=== PATIENT | female | born 1945 | race Caucasian/White ===

== ENCOUNTER 2020-05-10 09:25 | Outpatient (REF) | payer MEDICARE, SELFPAY ==
[2020-05-10 11:17] LABS: MANUAL DIFF FLAG NO
[2020-05-10 11:24] LABS: Basophils Percent Auto 0.7 % (0-2); Eosinophils Absolute Auto 0.3 X10*3/uL (0.0-0.4); Eosinophils Percent Auto 4.7 % (0-4); Hematocrit 39.3 % (37-47); Hemoglobin 13.8 g/dl (12.0-16.0); Imm Gran Abs Auto 0.01 X10*3/uL (0.00-0.03); Imm Gran Pct Auto 0.2 % (0.0-0.4); Lymphocytes Percent Auto 17.5 % (20-40); Mean Corpuscular HGB Conc 35.1 g/dl (31.0-35.0); Mean Corpuscular Hemoglobin 35.5 pg (27.0-33.0); Monocytes Absolute Auto 0.6 X10*3/uL (0.1-1.2); Monocytes Percent Auto 10.9 % (2-11); Neutrophils Absolute Auto 3.7 X10*3/uL (2.0-8.3); Platelet Count 211 X10*3/uL (160-400); Red Blood Count 3.89 X10*6/uL (4.20-5.50); Red Cell Distribution Width 12.7 % (11.0-16.0); White Blood Count 5.6 X10*3/uL (4.8-10.8)
[2020-05-10 11:42] LABS: Alanine Aminotransferase 18 U/L (0-31); Albumin Level 4.3 g/dL (3.5-5.0); Alkaline Phosphatase 87 U/L (39-117); Anion Gap 13 (12-20); Aspartate Amino Transferase 27 U/L (5-31); Bilirubin Total 0.5 mg/dL (0.0-1.0); Blood Urea Nitrogen 21 mg/dL (9-16); Calcium 9.2 mg/dL (8.4-10.2); Carbon Dioxide 28 mmol/L (22-29); Chloride 105 mmol/L (96-108); Cholesterol 191 mg/dL; Estimated Glomerular Filt Rate > 60; Glucose Random 81 mg/dL (60-115); HDL Cholesterol 75 mg/dL; LDL Cholesterol Calculated 103 mg/dl; Potassium 4.3 mmol/l (3.3-5.1); Sodium 142 mmol/L (135-145); Total Protein 7.2 g/dL (6.5-8.0); Triglycerides 68 mg/dL
[2020-05-10 12:40] LABS: Folate 12.7 ng/mL (> or = 4.0); Vitamin B12 367 pg/mL (200-900)
== END 2020-05-10 09:26 | disposition home or self-care (01) ==
LOC: HO.HMGCLDS 09:25
PROVIDERS: PCP Internal Medicine; Visit Provider Internal Medicine
DX: E03.9 Hypothyroidism, unspecified (principal); I10 Essential (primary) hypertension; E78.00 Pure hypercholesterolemia, unspecified; R79.89 Other specified abnormal findings of blood chemistry
CPT/HCPCS: 36415; 80053; 80061; 82607; 82746; 84443; 85025

== ENCOUNTER 2020-06-23 | Outpatient (REF) | payer MEDICARE, SELFPAY | END 2020-06-23 00:01 | disposition home or self-care (01) | LOC: HO.VC | PROVIDERS: Visit Provider Internal Medicine | DX: Z23 Encounter for immunization (principal) | CPT/HCPCS: 0011A ==

== ENCOUNTER 2020-07-20 | Outpatient (REF) | payer MEDICARE, SELFPAY | END 2020-07-20 00:01 | disposition home or self-care (01) | LOC: HO.VC | PROVIDERS: Visit Provider Internal Medicine | DX: Z23 Encounter for immunization (principal) | CPT/HCPCS: 0012A ==

== ENCOUNTER → 2020-12-15 15:11 | Outpatient (BNVA) | payer MEDICARE, SELFPAY | PROVIDERS: PCP Internal Medicine; Visit Provider Internal Medicine | DX: J43.9 Emphysema, unspecified (principal); F41.9 Anxiety disorder, unspecified | CPT/HCPCS: 99212 ==

== ENCOUNTER 2021-01-04 14:15 | Outpatient (REF) | payer MEDICARE, SELFPAY ==
[2021-01-04 17:25] LABS: Anion Gap 12 (12-20); Blood Urea Nitrogen 25 mg/dL (9-16); Calcium 9.2 mg/dL (8.4-10.2); Carbon Dioxide 28 mmol/L (22-29); Chloride 106 mmol/L (96-108); Estimated Glomerular Filt Rate > 60; Potassium 4.1 mmol/L (3.3-5.1); Sodium 142 mmol/L (135-145)
[2021-01-10 05:11] LABS: Renin 8.52 ng/mL/h (0.25-5.82)
== END 2021-01-04 14:16 | disposition home or self-care (01) ==
LOC: HO.HMGCLDS 14:15
PROVIDERS: PCP Internal Medicine; Visit Provider Internal Medicine Hypertension Specialist
DX: I10 Essential (primary) hypertension (principal)
CPT/HCPCS: 36415; 80051; 82088; 82310; 82565; 84244; 84520

== ENCOUNTER 2021-03-17 11:58 | Outpatient (REF) | payer MEDICARE, SELFPAY ==
[2021-03-17 13:03] LABS: Influenza A PCR NEGATIVE (Negative); Influenza B PCR NEGATIVE (Negative); Resp Syncy Virus RNA Qual PCR NEGATIVE (Negative); SARS COV2 PCR INHOUSE NEGATIVE (Negative)
== END 2021-03-17 11:59 | disposition home or self-care (01) ==
LOC: HO.LAB 11:58
PROVIDERS: PCP Internal Medicine; Visit Provider Internal Medicine
DX: Z20.822 Contact with and (suspected) exposure to COVID-19 (principal)
CPT/HCPCS: 0241U; 36415

== ENCOUNTER 2021-07-27 09:05 | Outpatient (REF) | payer MEDICARE, SELFPAY ==
[2021-07-27 11:29] LABS: MANUAL DIFF FLAG NO
[2021-07-27 11:39] LABS: Basophils Percent Auto 0.7 % (0-2); Eosinophils Absolute Auto 0.2 X10*3/uL (0.0-0.4); Eosinophils Percent Auto 5.1 % (0-4); Hematocrit 39.3 % (37.0-47.0); Hemoglobin 13.3 g/dl (12.0-16.0); Lymphocytes Absolute Auto 0.8 X10*3/uL (1.2-4.9); Mean Corpuscular HGB Conc 33.8 g/dl (31.0-35.0); Mean Corpuscular Volume 97.5 fL (80.0-98.0); Mean Platelet Volume 10.5 fL (9.4-12.3); Monocytes Absolute Auto 0.4 X10*3/uL (0.1-1.2); Monocytes Percent Auto 10.1 % (2-11); Neutrophils Absolute Auto 2.7 x10*3/uL (2.0-8.3); Neutrophils Percent Auto 65.1 % (45-73); Platelet Count 227 X10*3/uL (160-400); Red Blood Count 4.03 X10*6/uL (4.20-5.50); Red Cell Distribution Width 12.9 % (11.0-16.0); White Blood Count 4.2 X10*3/uL (4.8-10.8)
[2021-07-27 12:12] LABS: Alanine Aminotransferase 20 U/L (0-31); Albumin Level 4.5 g/dL (3.5-5.0); Alkaline Phosphatase 92 U/L (39-117); Anion Gap 12 (12-20); Aspartate Amino Transferase 25 U/L (5-31); Bilirubin Total 0.5 mg/dL (0.0-1.0); Blood Urea Nitrogen 21 mg/dL (9-16); Calcium 9.7 mg/dL (8.4-10.2); Carbon Dioxide 29 mmol/L (22-29); Chloride 103 mmol/L (96-108); Cholesterol 206 mg/dL; Estimated Glomerular Filt Rate > 60; Glucose Random 97 mg/dL (60-115); HDL Cholesterol 76 mg/dL; LDL Cholesterol Calculated 118 mg/dl; Sodium 140 mmol/L (135-145); Total Protein 7.4 g/dL (6.5-8.0); Triglycerides 60 mg/dL
[2021-07-27 12:18] LABS: Free T4 (Free Thyroxine) 1.18 ng/dL (0.71-1.85); Vitamin D 25-OH Total 40.2 ng/mL (>30)
[2021-07-27 12:34] LABS: Folate 12.8 ng/mL (> or = 4.0); Vitamin B12 370 pg/mL (200-900)
== END 2021-07-27 09:06 | disposition home or self-care (01) ==
LOC: HO.HMGCLDS 09:05
PROVIDERS: PCP Internal Medicine; Visit Provider Internal Medicine
DX: E78.00 Pure hypercholesterolemia, unspecified (principal); E03.9 Hypothyroidism, unspecified; K21.9 Gastro-esophageal reflux disease without esophagitis
CPT/HCPCS: 36415; 80053; 80061; 82306; 82607; 82746; 84439; 84443; 85025

== ENCOUNTER 2021-08-09 14:21 | Outpatient (REF) | payer MEDICARE, SELFPAY ==
[2021-08-09 17:07] LABS: Anion Gap 13 (12-20); Blood Urea Nitrogen 21 mg/dL (9-16); Calcium 9.8 mg/dL (8.4-10.2); Carbon Dioxide 28 mmol/L (22-29); Chloride 103 mmol/L (96-108); Estimated Glomerular Filt Rate > 60; Glucose Random 95 mg/dL (60-115); Potassium 4.2 mmol/L (3.3-5.1); Sodium 140 mmol/L (135-145)
== END 2021-08-09 14:22 | disposition home or self-care (01) ==
LOC: HO.HMGCLDS 14:21
PROVIDERS: Visit Provider Internal Medicine Hypertension Specialist
DX: I10 Essential (primary) hypertension (principal)
CPT/HCPCS: 36415; 80048

== ENCOUNTER 2021-12-08 10:25 | Outpatient (REF) | payer MEDICARE, SELFPAY ==
--- NOTE | ~2021-12-08 | US_ITS ---
EXAMINATION: US ABDOMEN COMPLETE CLINICAL INFORMATION: Other specified abnormal findings of blood chemistry. COMPARISON: None TECHNIQUE: Real-time imaging of the abdominal viscera. FINDINGS: PANCREAS: Within normal limits. ABDOMINAL AORTA: The proximal, mid, and distal segments are normal in caliber. INFERIOR VENA CAVA: Visualized portions are normal. LIVER: Nonspecific focal hyperechoic observation in the left lobe of the liver. The liver is otherwise normal in size, shape and attenuation. No biliary ductal dilatation. GALLBLADDER: Cholelithiasis and sludge. No evidence of gallbladder wall thickening or pericholecystic free fluid. Negative Hernandez's sign. COMMON BILE DUCT: Normal in caliber measuring 0.1 cm in diameter. RIGHT KIDNEY: Multiple echogenic foci with no associated shadowing or twinkle artifact. No hydronephrosis or focal parenchymal lesions. The kidney measures 9.6 cm in maximum dimension. LEFT KIDNEY: Multiple echogenic foci with no associated shadowing or twinkle artifact. There is an additional 0.3 cm echogenic focus with twinkle artifact, related with a stone. No hydronephrosis or focal parenchymal lesions. The kidney measures 9.4 cm in maximum dimension. SPLEEN: Normal. The spleen measures 6.4 cm in maximum dimension. FREE FLUID: None. US/US abdomen complete IMPRESSION: Nonspecific hyperechoic focal observation in the left hepatic lobe, possibly associated with differential fat infiltration. However, definite characterization is recommended with an elective MRI of the abdomen with and without intravenous contrast. Cholelithiasis but no sonographic evidence of acute cholecystitis. Bilateral echogenic renal foci with no associated shadowing nor twinkle artifact, possibly associated with vascular calcifications. There is a 0.3 cm nonobstructive calculus in the left kidney.
== END 2021-12-08 10:26 | disposition home or self-care (01) ==
LOC: HO.HMGCX 10:25
PROVIDERS: Visit Provider Internal Medicine
DX: K21.9 Gastro-esophageal reflux disease without esophagitis (principal); R79.89 Other specified abnormal findings of blood chemistry
CPT/HCPCS: 76700

== ENCOUNTER → 2022-01-10 15:32 | Outpatient (BNVA) | payer MEDICARE, SELFPAY | PROVIDERS: PCP Internal Medicine; Visit Provider Internal Medicine | DX: J43.9 Emphysema, unspecified (principal); J30.9 Allergic rhinitis, unspecified; Z79.899 Other long term (current) drug therapy | CPT/HCPCS: 99212 ==

== ENCOUNTER 2022-02-17 08:26 | Day surgery (SDC) | payer MEDICARE, SELFPAY ==
[2022-01-18 14:39] VITALS: BMI 16.7
--- NOTE | 2022-02-16 09:23 | P.CONAN_ITS ---
Documented by User: Mitra Song NP 02/16/22 09:24 HPI - Anesthesia Eval Consult details Narrative: 76yo F for Upper Endoscopy PMFSH Active Problems Active Problems: All Active Problems (Updated 01/18/22 @ 14:34 by Hilaria Cardona RN) Generalized anxiety disorder (Acute) Impacted cerumen of both ears (Acute) Allergic rhinitis (Acute) Osteopenia (Acute) Weight loss (Acute) Arrhythmia (Acute) Left renal stone (Acute) Cholelithiasis (Acute) Cheilitis (Acute) Liver lesion (Acute) COPD (chronic obstructive pulmonary disease) (Acute) GERD (gastroesophageal reflux disease) (Acute) Hypercholesterolemia (Acute) Hypothyroid (Acute) Hypertension (Acute) Past Medical History Medical History (Updated 01/18/22 @ 14:34 by Hilaria Cardona RN) COPD (chronic obstructive pulmonary disease) GERD (gastroesophageal reflux disease) Hypercholesterolemia Hypertension Hypothyroid Tubular adenoma of colon Family History Family History Father Coronary artery disease Mother Pancreatic cancer Surgical History Surgical History (Updated 01/18/22 @ 14:34 by Hilaria Cardona RN) H/O colonoscopy History of breast biopsy History of nasal surgery History of tonsillectomy and adenoidectomy Hx of cataract extraction Social History Social History Housing: House Alcohol intake: current Alcohol intake frequency: does not drink Patient Tobacco Use Status: Former Tobacco user Tobacco use type: Cigarette e-Cigarette/Vaping Use: Never Used Second Hand Smoke Exposure: No Are you DNR?: No Advance Directives: No Advance Directives Information Provided: Yes Current occupational status: retired Cognitive needs: No Hearing needs: No Vision needs: Yes Meds Allergies Allergy/AdvReac Type Severity Reaction Status Date / Time amlodipine Allergy Intermediate Leg Verified 01/10/22 15:54 swelling hydrochlorothiazide Allergy Intermediate Hypokalemia Verified 01/10/22 15:54 lisinopril Allergy Intermediate Cough Verified 01/10/22 15:54 Home Medications Medication Instructions Recorded Confirmed Last Taken Type Ca 600 mg-D3 20 mcg-mag oxide 50 1 tab PO DAILY 03/03/20 01/18/22 02/16/22 History mx-Ku-tmcfon-manganese-boron tablet (Calcium 600-D3 Plus (mag-zinc)) aspirin 81 mg tablet,delayed 81 mg PO DAILY 03/03/20 01/18/22 02/16/22 History release (Adult Aspirin Regimen) cholecalciferol (vitamin D3) 25 25 mcg PO DAILY 03/03/20 01/18/22 02/16/22 History mcg (1,000 unit) capsule fexofenadine 180 mg tablet 180 mg PO DAILY 02/01/21 01/18/22 02/16/22 History Exam Exam Date and Time: February 16, 2022922 Height,Weight and Vital Signs: Height 5 ft Weight 39.009 kg Pertinent Lab Results Pertinent Lab Results: Laboratory Tests 07/27/21 08/09/21 09:15 14:28 WBC 4.2 L Hgb 13.3 Hct 39.3 Plt Count 227 Sodium 140 Potassium 4.2 Chloride 103 Carbon Dioxide 28 BUN 21 H Creatinine 0.70 Assessment and Plan Assessment Anesthesia Assessment: Chart Reviewed Documented by User: Keysha Aggarwal MD 02/17/22 10:16 [facility] Past Medical History Medical History (Updated 01/18/22 @ 14:34 by Hilaria Cardona RN) COPD (chronic obstructive pulmonary disease) GERD (gastroesophageal reflux disease) Hypercholesterolemia Hypertension Hypothyroid Tubular adenoma of colon Family History Family History Father Coronary artery disease Mother Pancreatic cancer Family history of problems with anesthesia: No Surgical History Surgical History (Updated 01/18/22 @ 14:34 by Hilaria Cardona RN) H/O colonoscopy History of breast biopsy History of nasal surgery History of tonsillectomy and adenoidectomy Hx of cataract extraction History of Problems with Anesthesia: No Social History Social History Housing: House Alcohol intake: current Alcohol intake frequency: does not drink Patient Tobacco Use Status: Former Tobacco user Tobacco use type: Cigarette e-Cigarette/Vaping Use: Never Used Second Hand Smoke Exposure: No Are you DNR?: No Advance Directives: No Advance Directives Information Provided: Yes Current occupational status: retired Cognitive needs: No Hearing needs: No Vision needs: Yes Meds Allergies Allergy/AdvReac Type Severity Reaction Status Date / Time amlodipine Allergy Intermediate Leg Verified 01/10/22 15:54 swelling hydrochlorothiazide Allergy Intermediate Hypokalemia Verified 01/10/22 15:54 lisinopril Allergy Intermediate Cough Verified 01/10/22 15:54 Home Medications Medication Instructions Recorded Confirmed Last Taken Type Ca 600 mg-D3 20 mcg-mag oxide 50 1 tab PO DAILY 03/03/20 01/18/22 02/16/22 History te-Ok-xjvynj-manganese-boron tablet (Calcium 600-D3 Plus (mag-zinc)) aspirin 81 mg tablet,delayed 81 mg PO DAILY 03/03/20 01/18/22 02/16/22 History release (Adult Aspirin Regimen) cholecalciferol (vitamin D3) 25 25 mcg PO DAILY 03/03/20 01/18/22 02/16/22 History mcg (1,000 unit) capsule fexofenadine 180 mg tablet 180 mg PO DAILY 02/01/21 01/18/22 02/16/22 History Exam Height,Weight and Vital Signs: Height 5 ft Weight 39.009 kg Vital Signs Temp Pulse Resp BP Pulse Ox O2 Del Method 02/17/22 08:32 98 F 118 H 18 140/78 H 99 Room Air Airway Mallampati Class: II TM Dist: >3cm Neck ROM: Full Loose/Missing/Broken Teeth: No (Crowns intact) Heart: RRR Lungs: CTAB Assessment and Plan Assessment Anesthesia Assessment: Anesthesia Plan Discussed Final Anesthetic Review Family History of Problems with Anesthesia: No History of Problems with Anesthesia: No NPO: Yes ASA Class: III Final Preanesthetic Review: No Changes in Pt Med Stat, Meds/Allgs Chart Reviewed, Consent Obtained/Reviewed and Anes Risks/Benef Reviewed Patient Risk: Intermediate Procedure Risk: Low Assessment/Block/Sedation in SS: Assess/Block/Sedation-SS Anesthetic Plan Anesthetic Plan: MAC: Disposition: Standard PACU
--- NOTE | 2022-02-17 | ECG_ITS ---
Test Reason : NEW ONSET AFIB Blood Pressure : / mmHG Vent. Rate : 060 BPM Atrial Rate : 241 BPM P-R Int : 000 ms QRS Dur : 128 ms QT Int : 438 ms P-R-T Axes : 000 -68 002 degrees QTc Int : 438 ms Atrial flutter with variable A-V block Right bundle branch block Left anterior fascicular block Bifascicular block Possible Lateral infarct , age undetermined Abnormal ECG When compared with ECG of 15-SEP-2014 16:56, Atrial flutter has replaced Sinus rhythm Borderline criteria for Lateral infarct are now Present Referred By: Keysha Aggarwal Electronically Signed By:MICAELA SMITH
[2022-02-17 08:32] VITALS: BP 140/78; PULSE 118; RESP 18; TEMP 36.6; O2SAT 99
[2022-02-17] MEDS: Lactated Ringers 1,000 ML 100 ML IVCONT (08:54)
--- NOTE | 2022-02-17 09:44 | MHC.SHP ---
Pre-Procedural Eval Section A Date of Service: 02/17/22 Section B Chief Complaint: reflux,wt loss Details of Present Illness: see h and p no changes Relevant Family History (Specify if Yes): No Relevant Social History: None Present Medications: see Short Stay Collaborative assessment Medical History: No relevant PMH History of Previous Operations: No relevant previous surgery Allergies: Allergies Allergy/AdvReac Type Severity Reaction Status Date / Time amlodipine Allergy Intermediate Leg Verified 01/10/22 15:54 swelling hydrochlorothiazide Allergy Intermediate Hypokalemia Verified 01/10/22 15:54 lisinopril Allergy Intermediate Cough Verified 01/10/22 15:54 Review of Systems Sugical H&P ROS: Negative: Constitution, Cardiovascular, Respiratory, Neurological, Psychiatric, Hem-Onc, Allergic/Immunologic, Gastrointestinal, Genitourinary, Musculoskeletal, Integumentary, Endocrine and Eyes/Ears/Nose/Throat Exam Surgical H&P Exam: Normal: HEENT, Normal: Heart, Normal: Lungs, Normal: Extremities, Normal: Abdomen, Normal: Skin and Normal: Neurological Plan Diagnosis/Plan: Unchanged I have reviewed the history and physical and performed a pertinent physical examination on my patient. No changes have occurred unless specified.
[2022-02-17 10:09] VITALS: BP 80/38; PULSE 58; RESP 16; TEMP 36.9; O2SAT 98
--- NOTE | 2022-02-17 10:09 | P.BOP_ITS ---
Brief Operative Note Date of Service: 02/17/22 Pre-op diagnosis: gerd, wt loss Post-op diagnosis: same Surgeon: Tono Gloria Anesthesia: MAC Was an Vulcanized Fiber Unit Operator used for this Procedure?: No Estimated blood loss (mL): 2 Pathology: other Condition: stable Disposition: PACU
[2022-02-17 10:14] VITALS: BP 90/56; PULSE 55; RESP 16; O2SAT 98
[2022-02-17 10:19] VITALS: BP 108/55; PULSE 61; RESP 16; O2SAT 98
[2022-02-17 10:24] VITALS: BP 115/60; PULSE 62; RESP 16; O2SAT 98
[2022-02-17 10:38] VITALS: BP 126/81; PULSE 61; RESP 16; TEMP 37; O2SAT 98
--- NOTE | 2022-02-22 21:34 | OP_ITS ---
SURGEON: Tono Gloria MD INDICATIONS: Gastroesophageal reflux disease and weight loss. PREOPERATIVE DIAGNOSIS: POSTOPERATIVE DIAGNOSIS: PROCEDURE PERFORMED: Upper endoscopy with biopsy on 02/22/22.. ESTIMATED BLOOD LOSS: COMPLICATIONS: ANESTHESIA: ASSISTANTS: SPECIMENS: MEDICATIONS: Monitored anesthesia care. DESCRIPTION OF PROCEDURE: History and physical was performed. The risks and benefits of the procedure were explained to the patient. Informed consent was obtained. The patient was placed in the left lateral decubitus position. The Olympus videogastroscope was introduced into the esophagus, stomach, and duodenum. Examination was performed. The scope was removed. She tolerated the procedure well and was taken to Recovery in stable condition. FINDINGS: Esophagus: The esophagus was normal. There was no esophagitis. Biopsies were obtained from the EG junction. Stomach: Stomach showed no evidence of masses or ulcers. There was a small sliding hiatal hernia. There was mild erythema in the antrum consistent with gastritis. Biopsies were obtained from the antrum. Duodenum: The bulb and second portion were normal. Biopsies were obtained from the second portion of the duodenum. IMPRESSION: 1. Gastroesophageal reflux disease. 2. Gastritis. RECOMMENDATIONS: Follow up with the biopsy results. MD TYLER Bedoya/BEATRIS / [id number] MTDD
== END 2022-02-17 11:00 | disposition home or self-care (01) ==
PROVIDERS: PCP Internal Medicine; Visit Provider Internal Medicine Gastroenterology
PROC: 0DJ08ZZ Inspection of Upper Intestinal Tract, Via Natural or Artificial Opening Endoscopic (ICD-10-PCS; CPT 43235; principal; 2022-02-17 09:30)
DX: K21.9 Gastro-esophageal reflux disease without esophagitis (principal); R63.4 Abnormal weight loss; K29.50 Unspecified chronic gastritis without bleeding; K44.9 Diaphragmatic hernia without obstruction or gangrene; I10 Essential (primary) hypertension; J44.9 Chronic obstructive pulmonary disease, unspecified; E03.9 Hypothyroidism, unspecified; E78.00 Pure hypercholesterolemia, unspecified; Z79.82 Long term (current) use of aspirin; Z79.899 Other long term (current) drug therapy; Z88.8 Allergy status to other drugs, medicaments and biological substances; Z87.891 Personal history of nicotine dependence
CPT/HCPCS: 43239; 88305; 88342; 93005; J2370

== ENCOUNTER 2022-02-17 11:06 | Emergency (ER) | payer MEDICARE, SELFPAY ==
--- NOTE | ~2022-02-17 | CT_ITS ---
EXAMINATION: CT ANGIOGRAM OF THE CHEST WITH AND WITHOUT CONTRAST (CT PULMONARY ANGIOGRAM FOR PE) CLINICAL INFORMATION: Reason for Exam New AFib, elevated D-dimer COMPARISON: None TECHNIQUE: Prior to contrast administration, noncontrast localization images were obtained. Subsequently, multidetector volumetric imaging was performed from the thoracic inlet to below the diaphragms following the administration of 65 mL Omnipaque 350 intravenous contrast. No contrast reaction reported Sagittal, coronal, and MIP oblique sagittal reformatted images were obtained on the CT workstation, uploaded to PACS, and reviewed. This CT examination was performed using dose optimization techniques as appropriate, variously including the following: *Automated exposure control *Adjustment of mA and/or kV according to patient size (this includes techniques or standardized protocols for targeted exams where dose is matched to indication/reason for exam; i.e. extremities or head) *Use of iterative reconstruction technique Total exam dose-length product 141 mGy-cm FINDINGS: QUALITY OF STUDY/CONTRAST BOLUS: Satisfactory. PULMONARY ARTERIES: No central or segmental pulmonary emboli. THORACIC AORTA: No aneurysm or dissection. LUNG: Biapical scarring is present. Mild atelectasis in the bilateral lower lobes. No additional consolidation. PLEURA: No pleural effusion or pneumothorax. MEDIASTINUM: Thyroid gland is not well visualized. There are subcentimeter mediastinal lymph nodes within the range of normal variation. Cardiac size is within normal limits; no pericardial effusion. CHEST WALL/AXILLA: No axillary or internal mammary lymphadenopathy. OSSEOUS STRUCTURES: No acute or suspicious osseous abnormality. UPPER ABDOMEN: Unremarkable. No reflux of contrast into the hepatic veins to suggest elevated right heart pressures. CT/CT angio chest PE protocol IMPRESSION: No pulmonary embolus identified. VTE: negative
[2022-02-17 11:11] VITALS: BP 151/57; PULSE 72; RESP 20; TEMP 37.1; O2SAT 97; BMI 17.9
--- NOTE | 2022-02-17 11:17 | ECG_ITS ---
Test Reason : arrythmia Blood Pressure : / mmHG Vent. Rate : 093 BPM Atrial Rate : 250 BPM P-R Int : 000 ms QRS Dur : 132 ms QT Int : 408 ms P-R-T Axes : 087 -65 037 degrees QTc Int : 507 ms Atrial flutter with variable A-V block Right bundle branch block Left anterior fascicular block Bifascicular block Abnormal ECG When compared with ECG of 17-FEB-2022 10:07, Heart rate has increased Referred By: Emily Champagne Electronically Signed By:MICAELA SMITH
--- NOTE | 2022-02-17 11:24 | ED.ARRPALP ---
HPI - Arrhythmia/Palpitations General Chief Complaint: Arrhythmia/Palpitations Stated Complaint: a flutter Time Seen by Provider: 02/17/22 11:16 Source: patient Mode of arrival: other Limitations: no limitations History of Present Illness HPI narrative: Patient presents to the emergency department from PACU. Patient was having an upper endoscopy with biopsy under Dr. Gloria, Patient's report was secondary to persistent belching. Report received from PACU staff that patient was initially tachycardic with sinus tachycardia on the monitor, during the procedure she was noted to go into atrial fibrillation/atrial flutter, EKG obtained in PACU revealed atrial flutter With variable heart rate, patient received Phenylephrine 100 mcg as she had a systolic blood pressure of 80 during procedure, 150/60 postoperatively. When asked, patient denies any known past history of atrial fibrillation or atrial flutter. Denies any headache, dizziness, lightheadedness, presyncope, syncope, neck pain, shortness of breath, difficulty breathing, chest pain, nausea, vomiting, abdominal pain, numbness or tingling of the extremities, recent swelling to her extremities, recent prolonged Immobilization, hormone usage. Related Data Home Medications Medication Instructions Recorded Confirmed Ca 600 mg-D3 20 mcg-mag oxide 50 1 tab PO DAILY 03/03/20 01/18/22 as-At-fbglwa-manganese-boron tablet (Calcium 600-D3 Plus (mag-zinc)) aspirin 81 mg tablet,delayed 81 mg PO DAILY 03/03/20 01/18/22 release (Adult Aspirin Regimen) cholecalciferol (vitamin D3) 25 25 mcg PO DAILY 03/03/20 01/18/22 mcg (1,000 unit) capsule fexofenadine 180 mg tablet 180 mg PO DAILY 02/01/21 01/18/22 Previous Rx's Medication Instructions Recorded amlodipine 5 mg-valsartan 160 mg 1 tab PO DAILY #30 tabs 01/17/21 tablet albuterol sulfate 90 mcg/actuation 2 puff inhalation Q4-6H PRN 05/05/21 aerosol inhaler (ProAir HFA) shortness of breath or wheezing #1 ea simethicone 125 mg capsule (Gas 125 mg PO BID PRN for abdominal 05/05/21 Relief Extra Strength) pain #90 caps simvastatin 5 mg tablet 5 mg PO QPM #90 tabs 02/23/22 timolol maleate 0.5 % eye drops 1 drp ophthalmic (eye) DAILY #5 mL 08/01/21 Pulmicort Flexhaler 90 1 inh inhalation BID #1 ea 08/10/21 mcg/actuation breath activated (budesonide) levothyroxine 50 mcg tablet 50 mcg PO DAILY 90 days #90 tabs 10/27/21 hydralazine 50 mg tablet 50 mg PO BID #180 tabs 12/22/21 clotrimazole 1 % topical cream 1 appl topical BID #30 grams 12/26/21 sucralfate 1 gram tablet (Carafate) 1 g PO BID #180 tabs 12/27/21 apixaban 2.5 mg tablet (Eliquis) 2.5 mg PO BID atrial fibrilation 02/17/22 #30 tabs famotidine 20 mg tablet (Pepcid) 20 mg PO DAILY #30 tabs 02/17/22 Allergies Allergy/AdvReac Type Severity Reaction Status Date / Time amlodipine Allergy Intermediate Leg Verified 01/10/22 15:54 swelling hydrochlorothiazide Allergy Intermediate Hypokalemia Verified 01/10/22 15:54 lisinopril Allergy Intermediate Cough Verified 01/10/22 15:54 [facility] Past Medical History Medical History (Updated 02/17/22 @ 13:35 by Emily Champagne CNP) COPD (chronic obstructive pulmonary disease) GERD (gastroesophageal reflux disease) Hypercholesterolemia Hypertension Hypothyroid Tubular adenoma of colon Surgical History (Updated 01/18/22 @ 14:34 by Hilaria Cardona RN) H/O colonoscopy History of breast biopsy History of nasal surgery History of tonsillectomy and adenoidectomy Hx of cataract extraction Family History Family History Father Coronary artery disease Mother Pancreatic cancer Social History Social History Housing: House Alcohol intake: current Alcohol intake frequency: does not drink Patient Tobacco Use Status: Former Tobacco user Tobacco use type: Cigarette e-Cigarette/Vaping Use: Never Used Second Hand Smoke Exposure: No Advance Directives: No Advance Directives Information Provided: Yes Current occupational status: retired Cognitive needs: No Hearing needs: No Vision needs: Yes Physical Exam Vital Signs: Vital Signs: Last Vital Signs Temp 98.0 F 02/17/22 13:09 Pulse 64 02/17/22 13:09 Resp 16 02/17/22 13:09 BP 139/68 02/17/22 13:09 Pulse Ox 99 02/17/22 13:09 O2 Del Method 02/17/22 13:09 BMI result Body Mass Index 17.9 Course Course Course Narrative: Patient is a 76-year-old female with a past medical history of anxiety, osteopenia nephrolithiasis, cholelithiasis, COPD, GERD, hypercholesterolemia, hypertension, hypothyroidism. Presents emergency department today from PACU for evaluation of arrhythmia. Upon review of operative records reveals a preoperative heart rate of 118, upon evaluation of the initial rhythm strip obtained does appear as though patient was in atrial fibrillation at that time. Rhythm strips obtained during procedure appear consistent with atrial fibrillation as well as atrial flutter. Most likely patient has had underlying atrial fibrillation prior to the procedure that has provoked atrial flutter that prompted her transfer to the emergency department. Will obtain CBC to evaluate for leukocytosis/ anemia, CMP to evaluate for abnormal electrolytes /abnormal renal function/ abnormal hepaticfunction, EKG and troponin to evaluate for ischemia/ACS, TSH, and Urinalysis. Reevaluation(s) Reevaluation #1: EKG reveals a new atrial flutter with variable A-V block, and a bifascicular block which was seen on prior EKG in 2015. Spoke with Assistant Designer Dr. Gloria, Advised the patient will need to be on anticoagulants, he advised that since patient had mucosal biopsy during procedure that she would be a candidate to start anticoagulants as of today if required. Given her weight, less than 60 kg patient to be started on Eliquis 2.5 mg twice daily, and will require outpatient follow-up with Cardiology. Discussed with patient worrisome signs and symptoms that she should come to the emergency department for including but not limited to falls, head injury, As well as bleeding risk precautions with anticoagulants. Will additionally cover her with PPI for gastric Mucosal protective factor. D-dimer is elevated at [address] angio of the chest to exclude pulmonary embolism. Labs are overall unremarkable otherwise. Initial troponin slightly elevated at 24.9, delta troponin is negative; 29.5. TSH is normal. No anemia. Time: 13:56 Reevaluation #2: Chest CT reveals no evidence of pulmonary embolism. Again reviewed all findings with patient. Patient stable for discharge home. Time: 16:06 MDM - Arrhythmia/Palpitations Medical Records Attestation: I reviewed the patient's medical records. Lab Data Attestation: I reviewed the patient's lab results. Result diagrams: 02/17/22 11:39 02/17/22 11:39 Labs: Lab Results 02/17/22 02/17/22 02/17/22 Range/Units 11:39 11:39 11:39 WBC 7.3 (4.8-10.8) X10*3/uL RBC 4.56 (4.20-5.50) X10*6/uL Hgb 14.0 (12.0-16.0) g/dl Hct 42.6 (37.0-47.0) % MCV 93.4 (80.0-98.0) fL MCH 30.7 (27.0-33.0) pg MCHC 32.9 (31.0-35.0) g/dl RDW 12.7 (11.0-16.0) % Plt Count 224 (160-400) X10*3/uL MPV 9.9 (9.4-12.3) fL Immature Gran % (Auto) 0.1 (0.0-0.4) % Neut % (Auto) 82.6 H (45-73) % Lymph % (Auto) 7.9 L (20-40) % [place] % (Auto) 8.6 (2-11) % Eos % (Auto) 0.4 (0-4) % Baso % (Auto) 0.4 (0-2) % Lymph # (Auto) 0.6 L (1.2-4.9) X10*3/uL [place] # (Auto) 0.6 (0.1-1.2) X10*3/uL Eos # (Auto) 0.0 (0.0-0.4) X10*3/uL Baso # (Auto) 0.0 (0.0-0.2) X10*3/uL Abs Immat Gran (auto) 0.01 (0.00-0.03) X10*3/uL Absolute Neuts (auto) 6.0 (2.0-8.3) x10*3/uL Absolute Nucleated RBC 0.000 (0.0-0.012) X10*3/uL Nucleated RBC % (auto) 0.0 (0.0-0.2) /100WBC D-Dimer High Sensitivty NG/ML Sodium 140 (135-145) mmol/L Potassium 3.9 (3.3-5.1) mmol/L Chloride 105 (96-108) mmol/L Carbon Dioxide 22 (22-29) mmol/L Anion Gap 17 (12-20) BUN 17 H (9-16) mg/dL Creatinine 0.61 (0.5-1.4) mg/dL Estim Creat Clear Calc 50.1 Estimated GFR > 60 Random Glucose 99 (60-115) mg/dL Calcium 9.1 D (8.4-10.2) mg/dL Magnesium 1.8 (1.6-2.6) mg/dL Total Bilirubin 0.6 (0.0-1.0) mg/dL AST 25 (5-31) U/L ALT 29 (0-31) U/L Alkaline Phosphatase 123 H D (39-117) U/L Troponin I High Sens 24.9 H (<3.5-17.0) ng/L B-Natriuretic Peptide (<100) pg/mL Total Protein 6.7 (6.5-8.0) g/dL Albumin 4.1 (3.5-5.0) g/dL TSH 1.17 (0.32-4.0) uIU/mL Urine Color Urine Appearance Urine pH (5.0-9.0) Ur Specific [place] (1.005-1.025) Urine Protein (Neg-Trace) mg/dL Urine Glucose (UA) (Negative) mg/dL Urine Ketones (Negative) mg/dL Urine Blood (Negative) Urine Nitrite (Negative) Ur Leukocyte Esterase (Negative) Urine RBC (0-2) /HPF Urine WBC (0-5) /HPF Ur Squamous Epith Cells (0-2) /HPF Urine Bacteria (None Seen) Hyaline Casts (0-2) /LPF COVID-19 (ZOEY) (Negative) COVID-19 Clin Com 02/17/22 02/17/22 02/17/22 Range/Units 11:39 11:40 13:30 WBC (4.8-10.8) X10*3/uL RBC (4.20-5.50) X10*6/uL Hgb (12.0-16.0) g/dl Hct (37.0-47.0) % MCV (80.0-98.0) fL MCH (27.0-33.0) pg MCHC (31.0-35.0) g/dl RDW (11.0-16.0) % Plt Count (160-400) X10*3/uL MPV (9.4-12.3) fL Immature Gran % (Auto) (0.0-0.4) % Neut % (Auto) (45-73) % Lymph % (Auto) (20-40) % [place] % (Auto) (2-11) % Eos % (Auto) (0-4) % Baso % (Auto) (0-2) % Lymph # (Auto) (1.2-4.9) X10*3/uL [place] # (Auto) (0.1-1.2) X10*3/uL Eos # (Auto) (0.0-0.4) X10*3/uL Baso # (Auto) (0.0-0.2) X10*3/uL Abs Immat Gran (auto) (0.00-0.03) X10*3/uL Absolute Neuts (auto) (2.0-8.3) x10*3/uL Absolute Nucleated RBC (0.0-0.012) X10*3/uL Nucleated RBC % (auto) (0.0-0.2) /100WBC D-Dimer High Sensitivty 532 NG/ML Sodium (135-145) mmol/L Potassium (3.3-5.1) mmol/L Chloride (96-108) mmol/L Carbon Dioxide (22-29) mmol/L Anion Gap (12-20) BUN (9-16) mg/dL Creatinine (0.5-1.4) mg/dL Estim Creat Clear Calc Estimated GFR Random Glucose (60-115) mg/dL Calcium (8.4-10.2) mg/dL Magnesium (1.6-2.6) mg/dL Total Bilirubin (0.0-1.0) mg/dL AST (5-31) U/L ALT (0-31) U/L Alkaline Phosphatase (39-117) U/L Troponin I High Sens (<3.5-17.0) ng/L B-Natriuretic Peptide 393 H (<100) pg/mL Total Protein (6.5-8.0) g/dL Albumin (3.5-5.0) g/dL TSH (0.32-4.0) uIU/mL Urine Color Urine Appearance Urine pH (5.0-9.0) Ur Specific [place] (1.005-1.025) Urine Protein (Neg-Trace) mg/dL Urine Glucose (UA) (Negative) mg/dL Urine Ketones (Negative) mg/dL Urine Blood (Negative) Urine Nitrite (Negative) Ur Leukocyte Esterase (Negative) Urine RBC (0-2) /HPF Urine WBC (0-5) /HPF Ur Squamous Epith Cells (0-2) /HPF Urine Bacteria (None Seen) Hyaline Casts (0-2) /LPF COVID-19 (ZOEY) Negative (Negative) COVID-19 Clin Com See Note 02/17/22 02/17/22 Range/Units 13:30 13:48 WBC (4.8-10.8) X10*3/uL RBC (4.20-5.50) X10*6/uL Hgb (12.0-16.0) g/dl Hct (37.0-47.0) % MCV (80.0-98.0) fL MCH (27.0-33.0) pg MCHC (31.0-35.0) g/dl RDW (11.0-16.0) % Plt Count (160-400) X10*3/uL MPV (9.4-12.3) fL Immature Gran % (Auto) (0.0-0.4) % Neut % (Auto) (45-73) % Lymph % (Auto) (20-40) % [place] % (Auto) (2-11) % Eos % (Auto) (0-4) % Baso % (Auto) (0-2) % Lymph # (Auto) (1.2-4.9) X10*3/uL [place] # (Auto) (0.1-1.2) X10*3/uL Eos # (Auto) (0.0-0.4) X10*3/uL Baso # (Auto) (0.0-0.2) X10*3/uL Abs Immat Gran (auto) (0.00-0.03) X10*3/uL Absolute Neuts (auto) (2.0-8.3) x10*3/uL Absolute Nucleated RBC (0.0-0.012) X10*3/uL Nucleated RBC % (auto) (0.0-0.2) /100WBC D-Dimer High Sensitivty NG/ML Sodium (135-145) mmol/L Potassium (3.3-5.1) mmol/L Chloride (96-108) mmol/L Carbon Dioxide (22-29) mmol/L Anion Gap (12-20) BUN (9-16) mg/dL Creatinine (0.5-1.4) mg/dL Estim Creat Clear Calc Estimated GFR Random Glucose (60-115) mg/dL Calcium (8.4-10.2) mg/dL Magnesium (1.6-2.6) mg/dL Total Bilirubin (0.0-1.0) mg/dL AST (5-31) U/L ALT (0-31) U/L Alkaline Phosphatase (39-117) U/L Troponin I High Sens 29.5 H (<3.5-17.0) ng/L B-Natriuretic Peptide (<100) pg/mL Total Protein (6.5-8.0) g/dL Albumin (3.5-5.0) g/dL TSH (0.32-4.0) uIU/mL Urine Color Yellow Urine Appearance Clear Urine pH 8.0 (5.0-9.0) Ur Specific [place] 1.010 (1.005-1.025) Urine Protein Negative (Neg-Trace) mg/dL Urine Glucose (UA) Negative (Negative) mg/dL Urine Ketones 15 (Negative) mg/dL Urine Blood Negative (Negative) Urine Nitrite Negative (Negative) Ur Leukocyte Esterase Small (1+) H (Negative) Urine RBC 0-2 (0-2) /HPF Urine WBC 6-10 H (0-5) /HPF Ur Squamous Epith Cells 0-2 (0-2) /HPF Urine Bacteria None Seen (None Seen) Hyaline Casts 0-2 (0-2) /LPF COVID-19 (ZOEY) (Negative) COVID-19 Clin Com Imaging Data CT scan - chest: Radiologist's impression: CT/CT angio chest PE protocol IMPRESSION: No pulmonary embolus identified. ECG Data Attestation: I personally reviewed and interpreted this ECG as follows: ECG interpretation date: 02/17/22 Interpretation: Rate: 93 Rhythm:? Atrial flutter, variable A-V block, and bifascicular block? [place]: Left [place] deviation Normal QRS complex.?? ST T wave :??No ST elevation, no ST depression, no T-wave inversion qTC: 507 prior studies:? 2015, bifascicular block seen at that time The study has been interpreted contemporaneously by me. Discharge Plan Discharge Clinical Impression: Atrial fibrillation and flutter, GERD (gastroesophageal reflux disease) Patient Disposition: Home, Self-Care Instructions: Atrial Flutter (ED), A-fib (Atrial Fibrillation) (ED), Blood Thinners (ED) Additional Instructions: You were brought to the emergency department today after your endoscopy with concerns about a heart arrhythmia. You were found to be in atrial fibrillation, and atrial flutter. Based on review of records prior to your procedure, it is believed that you were in atrial fibrillation prior to the procedure. It is unclear exactly how long you may have been in this rhythm. As we discussed, because of this you will be to be started on a blood thinning medication, Eliquis. You will take this medication twice daily. It is important to monitor for signs of bleeding as we discussed, additionally should you fall, have uncontrolled bleeding, hit your head, or have any type of head injury you need to be evaluated in the emergency department right away. You should return to emergency department with any new or worsening symptoms or concerns. This is including but not limited to vision changes, dizziness, lightheadedness, persistent headaches, chest pain, palpitations, shortness of breath, difficulty breathing, weakness, numbness or tingling in your extremities. Please contact your primary care provider to arrange for a follow-up visit. You have been given contact information for Cardiology, please contact their office to arrange for a follow-up visit within 1 week. Prescriptions: New famotidine [Pepcid] 20 mg tablet 20 mg PO DAILY Qty: 30 0RF Eliquis 2.5 mg tablet 2.5 mg PO BID Qty: 30 0RF No Action amlodipine-valsartan 5-160 mg tablet 1 tab PO DAILY Qty: 30 0RF albuterol sulfate [ProAir HFA] 90 mcg/actuation HFA aerosol inhaler 2 puff inhalation Q4-6H PRN (Reason: shortness of breath or wheezing) Qty: 1 0RF simethicone [Gas Relief Extra Strength] 125 mg capsule 125 mg PO BID PRN (Reason: for abdominal pain) Qty: 90 2RF simvastatin 5 mg tablet 5 mg PO QPM Qty: 90 3RF Pulmicort Flexhaler 90 mcg/actuation aerosol powdr breath activated 1 inh inhalation BID Qty: 1 5RF levothyroxine 50 mcg tablet 50 mcg PO DAILY 90 Days Qty: 90 3RF hydralazine 50 mg tablet 50 mg PO BID Qty: 180 1RF sucralfate [Carafate] 1 gram tablet 1 g PO BID Qty: 180 1RF Ca-D3-mag cg-agra-kzi-leida-bor [Calcium 600-D3 Plus (mag-zinc)] 600 mg calcium- 800 unit-50 mg tablet 1 tab PO DAILY cholecalciferol (vitamin D3) 25 mcg (1,000 unit) capsule 25 mcg PO DAILY aspirin [Adult Aspirin Regimen] 81 mg tablet,delayed release (DR/EC) 81 mg PO DAILY fexofenadine 180 mg tablet 180 mg PO DAILY timolol maleate 0.5 % drops 1 drp ophthalmic (eye) DAILY Qty: 5 0RF clotrimazole 1 % cream 1 appl topical BID Qty: 30 0RF Referrals: Eduardo Pineda MD [Physician] - (new a-fib / a-flutter )
[2022-02-17 11:44] LABS: MANUAL DIFF FLAG NO
[2022-02-17 11:46] LABS: Basophils Percent Auto 0.4 % (0-2); Eosinophils Percent Auto 0.4 % (0-4); Hematocrit 42.6 % (37.0-47.0); Imm Gran Abs Auto 0.01 X10*3/uL (0.00-0.03); Imm Gran Pct Auto 0.1 % (0.0-0.4); Lymphocytes Absolute Auto 0.6 X10*3/uL (1.2-4.9); Lymphocytes Percent Auto 7.9 % (20-40); Mean Corpuscular HGB Conc 32.9 g/dl (31.0-35.0); Mean Corpuscular Hemoglobin 30.7 pg (27.0-33.0); Mean Corpuscular Volume 93.4 fL (80.0-98.0); Mean Platelet Volume 9.9 fL (9.4-12.3); Monocytes Absolute Auto 0.6 X10*3/uL (0.1-1.2); Monocytes Percent Auto 8.6 % (2-11); Neutrophils Percent Auto 82.6 % (45-73); Platelet Count 224 X10*3/uL (160-400); Red Blood Count 4.56 X10*6/uL (4.20-5.50); Red Cell Distribution Width 12.7 % (11.0-16.0); White Blood Count 7.3 X10*3/uL (4.8-10.8)
[2022-02-17 12:01] LABS: COVID-19 Test Negative (Negative); IDNOW Serial# 55D5AD1C
[2022-02-17 12:05] LABS: Troponin-I High Sensitivity 24.9 ng/L (<3.5-17.0)
[2022-02-17 12:06] LABS: B Type Natriuretic Peptide 393 pg/mL (<100)
[2022-02-17 12:10] LABS: Alanine Aminotransferase 29 U/L (0-31); Albumin Level 4.1 g/dL (3.5-5.0); Alkaline Phosphatase 123 U/L (39-117); Anion Gap 17 (12-20); Aspartate Amino Transferase 25 U/L (5-31); Bilirubin Total 0.6 mg/dL (0.0-1.0); Blood Urea Nitrogen 17 mg/dL (9-16); Calcium 9.1 mg/dL (8.4-10.2); Carbon Dioxide 22 mmol/L (22-29); Chloride 105 mmol/L (96-108); Creatinine Clr Calc Pharmacy 50.1; Estimated Glomerular Filt Rate > 60; Glucose Random 99 mg/dL (60-115); Magnesium 1.8 mg/dL (1.6-2.6); Potassium 3.9 mmol/L (3.3-5.1); Sodium 140 mmol/L (135-145); Total Protein 6.7 g/dL (6.5-8.0)
[2022-02-17 12:21] LABS: TSH reflex Free T4 1.17 uIU/mL (0.32-4.0)
[2022-02-17 13:09] VITALS: BP 139/68; PULSE 64; RESP 16; TEMP 36.7; O2SAT 99
[2022-02-17 13:45] LABS: D Dimer High Sensitivity 532 NG/ML
[2022-02-17 13:54] LABS: Troponin-I High Sensitivity 29.5 ng/L (<3.5-17.0)
[2022-02-17 14:07] LABS: Appearance Urine Clear; Color Urine Yellow; Glucose Urine UA Negative (Negative); Leukocyte Esterase Urine Small (1+) (Negative); Nitrite Urine Negative (Negative); UMIC TRIGGER UACC YES; Urine Blood Negative (Negative); Urine Ketones 15 mg/dL (Negative); Urine Protein Negative (Neg-Trace)
[2022-02-17 14:13] LABS: Bacteria Urine None Seen (None Seen); Hyaline Casts Urine 0-2 /LPF (0-2); RBC Urine 0-2 /HPF (0-2); Squamous Epithelial Cell Urine 0-2 /HPF (0-2); UACC Culture Trigger YES
[2022-02-17] MEDS: iohexoL 350 MG/ML 100 ML INFUS..BTL IV (14:49)
[2022-02-17 16:00] VITALS: BP 166/94; PULSE 62; RESP 16; TEMP 36.9; O2SAT 97
--- NOTE | 2022-02-17 16:24 | PC.NURSE ---
PATIENT WAS ASSISTED UNTO BED NIEVES VOIDED LARGE AMOUNT OF URINE .
== END 2022-02-17 16:54 | disposition home or self-care (01) ==
PROVIDERS: Nurse Practitioner Family; Emergency Provider Emergency Medicine; PCP Internal Medicine
DX: I48.91 Unspecified atrial fibrillation (principal); I49.9 Cardiac arrhythmia, unspecified; R00.2 Palpitations; R06.02 Shortness of breath; Z79.899 Other long term (current) drug therapy; Z87.891 Personal history of nicotine dependence; Z20.822 Contact with and (suspected) exposure to COVID-19
CPT/HCPCS: 36415; 71275; 80053; 81001; 81003; 83735; 83880; 84443; 84484; 85025; 85379; 87086; 87635; 93005; 99284; Q9967

== ENCOUNTER → 2022-03-10 12:59 | Outpatient (REF) | payer MEDICARE, SELFPAY ==
--- NOTE | 2022-03-10 13:03 | CA_ITS ---
Transthoracic Echocardiogram Patient (Last, First, Middle): Bhumi Ortiz L Gender: Female Date of : 1945 Age: 76 Procedure Date: 03/10/2022 Procedure Type: Transthoracic Echocardiogram Location: OP Height: 152.4 cm Weight: 43.09 kg BSA: 1.36 m2 Heart Rate: 66 bpm BP: 149 / 90 mmHg Mortgage Loan Officer Originator: Referring MD: Roxanne Mcdermott MD Symptoms: I48.91 - Unspecified atrial fibrillation Study Quality: Good ECG Rhythm: Sinus Conclusions: - Normal left ventricular size, thickness, systolic function, and wall motion. The visually estimated ejection fraction is between 60-65%. Diastolic function is normal for age. - Normal right ventricular cavity size and systolic function. - The left atrium is mildly dilated. Interatrial shunt cannot be excluded by color Doppler. - Mildly elevated right atrial pressure. Mild pulmonary hypertension is present. Findings Left Ventricle Normal left ventricular size, thickness, systolic function, and wall motion. The visually estimated ejection fraction is between 60-65%. Diastolic function is normal for age. Right Ventricle Normal right ventricular cavity size and systolic function. Atria The left atrium is mildly dilated. Interatrial shunt cannot be excluded by color Doppler. Aortic Valve There is a normal trileaflet aortic valve. There is mild thickening of the aortic valve. There is no aortic valve stenosis. There is trace (trivial) aortic valve regurgitation. Mitral Valve Normal mitral valve structure and function. There is trace mitral valve regurgitation. There is no mitral valve stenosis. Pulmonic Valve The pulmonic valve is likely normal. Tricuspid Valve Normal tricuspid valve structure and function. There is trace tricuspid valve regurgitation. Mildly elevated right atrial pressure. Mild pulmonary hypertension is present. Great Vessels All visible segments of the aorta are normal in size. The visualized portions of the pulmonary artery and branches are normal. Venous The inferior vena cava is dilated and collapses greater than 50% with inspiration. Pericardium/Pleural There is no evidence of pericardial effusion. Prior Study Comparison No prior study available for comparison. Measurements 2D Linear Measurements IVSd: 0.75 0.6-0.9/0.6-1.0 cm LVIDd: 4.30 3.9-5.3/4.2-5.9 cm LVIDd Index: 3.16 2.4-3.2/2.2-3.1 cm/m2 LVIDs: 2.53 2.0-3.6 cm LVPWd: 0.86 0.7-1.1 cm LA Diam: 3.00 2.7-3.8/3.0-4.0 cm LAIDs Index: 2.21 1.5-2.3 cm/m2 LV Mass: 132.21 67-162/88-224 g LV Mass Index: 97.22 43-95/49-115 g/m2 LVOT Diam: 1.90 3.0+(-)1.3 cm Mitral Valve MV Pk E: 1.32 MV PK A: 0.50 MV Decel Time: 167.00 E/A: 2.70 E'Lateral: 10.40 E'Medial: 8.70 E/E' Med: 15.20 E/E' Lat: 12.70 PHT: 49.00 MVA PHT: 4.49 Decel [place]: 7.90 Aortic Valve AoV Pk Alberto: 1.59 AoV Mn Alberto: 0.96 AoV VTI: 0.43 AoV Pk Grad: 10.00 Aov Mn Grad: 5.00 ALEKSANDR Cont.VTI: 1.97 LVOT LVOT Pk Alberto: 1.12 LVOT Mn Alberto: 0.68 LVOT VTI: 0.30 LVOT Pk Grad: 5.00 LVOT Mn Grad: 2.00 LVOT Diam: 1.90 LVOT Area: 2.84 Diastolic Function MV Pk E: 1.32 MV Pk A: 0.50 E/A: 2.70 E'Medial: 8.70 E/E' Med: 15.20 E' Laterial: 10.40 E/E' Lat: 12.70 Right Ventricle TAPSE (mm): 28.80 TVS' Alberto: 11.30 Tricuspid Valve TR Pk Alberto: 2.67 TR Pk Grad: 29.00 RA Press: 15.00 RVSP: 44.00 Great Vessels Aorta Sinus of Valsalva: 2.90 2.0-3.5 cm Pulmonary Valve PV Pk Alberto: 0.88 Peak PV Grad: 3.00 Updated in Other Vendor System with Status of Final Eduardo Pineda MD electronically signed on 03/13/2022 11:45:53 AM with status of Final
== END ==
LOC: HO.CARD 12:59
PROVIDERS: PCP Internal Medicine; Visit Provider Internal Medicine
DX: I48.91 Unspecified atrial fibrillation (principal)
CPT/HCPCS: 93306

== ENCOUNTER → 2022-06-06 13:41 | Outpatient (BNVA) | payer MEDICARE, SELFPAY | PROVIDERS: PCP Internal Medicine; Referring Provider Internal Medicine; Visit Provider Internal Medicine Cardiovascular Disease | DX: I48.92 Unspecified atrial flutter (principal); I45.2 Bifascicular block; I10 Essential (primary) hypertension | CPT/HCPCS: 93005; 99202 ==